=== PATIENT | female | born 1985 | race Caucasian/White ===

== ENCOUNTER 2019-02-20 14:42 | Emergency (ER) | payer MEDICAID ==
[~2019-02-20] VITALS: Ht 162.6 cm; Wt 54.5 kg
[2019-02-20 17:42] VITALS: BP 103/67
== END 2019-02-20 20:12 | disposition home or self-care (01) ==
LOC: ED 16:05
DX: S02.2XXA Fracture of nasal bones, initial encounter for closed fracture (principal); S02.31XA Fracture of orbital floor, right side, initial encounter for closed fracture; R51 Headache; Y04.8XXA Assault by other bodily force, initial encounter; Y93.89 Activity, other specified; Y92.009 Unspecified place in unspecified non-institutional (private) residence as the place of occurrence of the external cause; Y99.8 Other external cause status
CPT/HCPCS: 12011; 70450; 70486; 90471; 90714; 99284; J3490

== ENCOUNTER 2021-01-28 20:36 | Emergency (ER) | payer MEDICAID ==
[~2021-01-28] VITALS: Ht 162.6 cm; Wt 57.7 kg
[~2021-01-28 20:36] MED LIST: BUPR1FIL3 SL
[2021-01-28] MEDS ORDERED: CLINDAMYCIN 300 MG CAPSULE ONE (21:15)
[2021-01-28] MEDS ORDERED: OXYcodone/APAP 5/325MG TABLET ONE (21:15)
[2021-01-28] MEDS ORDERED: HYDROcodone/APAP 5/325 TABLET ONE (21:21)
[2021-01-28] MEDS ORDERED: CLINDAMYCIN 300 MG CAPSULE PO ONE (21:30)
[2021-01-28] MEDS ORDERED: HYDROcodone/APAP 5/325 TABLET PO ONE (21:30)
[2021-01-28 21:46] VITALS: BP 114/69
== END 2021-01-28 22:08 | disposition home or self-care (01) ==
LOC: ED 21:42
DX: K08.89 Other specified disorders of teeth and supporting structures (principal); F17.210 Nicotine dependence, cigarettes, uncomplicated
CPT/HCPCS: 99406